=== PATIENT | female | born 1970 | race Caucasian/White ===

== ENCOUNTER → 2018-07-03 | Outpatient (CLI) | payer OTHER ==
[2016-02-24 14:35] VITALS: BP 125/69
[~2018-07-03] MED LIST: ALBU2.5V8 IH; ASPI-482 PO; ASPI1TAB31 PO; BREO ELLIPTA 11 EACH IH; BUDE10.2 IH; BUTA1CAP29 PO; CALC-244 PO; CHOL10003 PO; CYAN10005 PO; METO-239 PO; METO50TA6 PO; MULT1TAB52 PO; ONDA4TAB7 PO; OXYC1TAB15 PO; POLY17PO29 PO; SENN-80 PO; TIOT18CA IH; VENL150C PO
--- NOTE | 2018-07-03 16:45 | KCIC ---
EXAM: Lumbar spine MRI without contrast. HISTORY: Pain. TECHNIQUE: Multiplanar, multisequence magnetic resonance imaging of the lumbar spine was performed without contrast. COMPARISON: Radiographs dated 06/21/2018. FINDINGS: There is minimal retrolisthesis of L1 on L2. There is mild lumbar levocurvature or levoscoliosis. There is degenerative endplate remodeling and Schmorl's node formation at the lower thoracic and upper lumbar levels. No suspicious osseous lesion is seen. There is no acute or subacute fracture. 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 The conus terminates at L1-L2. At T11-T12, there is a minimal disc bulge which slightly effaces the ventral thecal sac. There is no stenosis. There is an incidental dilated nerve root sheath cyst within the right neural foramen. At T12-L1, there is no stenosis. At L1-L2, there is a minimal disc bulge and endplate remodeling. There is no stenosis. At L2-L3, there is endplate remodeling. There is no stenosis. At L3-L4, there is endplate remodeling. There is no stenosis. There is a tiny dilated right nerve root sheath cyst within the right neural foramen. At L4-L5, there is minimal left facet arthropathy. There is a tiny dilated nerve root sheath cyst within the right neural foramen. There is no stenosis. At L5-S1, there is no stenosis. IMPRESSION: Minimal degenerative change within the lower thoracic and lumbar spine, described in detail above. There is mild lumbar levocurvature or levoscoliosis. There is no significant foraminal or central canal stenosis. There is no acute osseous finding. Electronically signed by: Dionna Fermin MD (07/03/2018 4:42 PM) [facility]
== END | disposition home or self-care (01) ==
LOC: KCIC MRI 15:16
PROVIDERS: ATTEND Physician Assistant Medical
DX: M54.5 Low back pain (principal)
CPT/HCPCS: 72148

== ENCOUNTER → 2018-07-03 | Outpatient (CLI) | payer OTHER ==
[2016-02-24 14:35] VITALS: BP 125/69
[~2018-07-03] MED LIST changes: +ALBUTEROL SULFATE 2.5 MG/3 ML NEBU. NEB ONE
--- NOTE | 2018-07-03 15:13 | RESP ---
DATE OF SERVICE: 07/03/2018 Referred by Elham Hanna APRN. The patient's FVC was 3.25, which is 88% predicted, FEV1 1.84, which is 62% predicted. The FEV1/FVC ratio was reduced. There was no response to bronchodilators. Lung volume showed normal total lung capacity. Residual volume was increased to 124% predicted. Diffusion capacity 47% predicted. IMPRESSION: 1. Moderate obstructive airway disease. 2. No response to bronchodilators. 3. Lung volumes consistent with air trapping. 4. Moderate to severely reduced diffusion capacity. JEFF HAWTHORNE MD DR: BLAKE/milagro JOB#: [id number] / [id number] ELHAM Starkey
== END | disposition home or self-care (01) ==
LOC: PF 07:39
PROVIDERS: ATTEND Physician Assistant Medical
DX: J98.8 Other specified respiratory disorders (principal); Z72.0 Tobacco use
CPT/HCPCS: 94060; 94640; 94729; J7613

== ENCOUNTER → 2018-08-27 | Outpatient (CLI) | payer OTHER ==
[2016-02-24 14:35] VITALS: BP 125/69
[~2018-08-27] MED LIST changes: -ALBUTEROL SULFATE 2.5 MG/3 ML NEBU. NEB ONE
--- NOTE | 2018-08-28 09:56 | SLEEP ---
DATE OF STUDY: SLEEP STUDY: REFERRING PHYSICIAN: Tammi Bates M.D. The patient is 47 years old who weighs 130 pounds with a BMI of 22. The patient has severe subjective hypersomnia with an Moosic score of 18. Review of medications also indicates use of Lyrica, Flexeril, Cymbalta and Fioricet. Sleep study was performed to rule out obstructive sleep apnea. During the night study, the patient spent 424 minutes in bed and slept for 397 minutes with sleep efficiency of 94%. Sleep latency was 8 minutes with a REM latency of 361 minutes. Overall, sleep architecture showed normal stage 1 sleep, increased stage 2 sleep, normal slow wave sleep and reduced REM sleep. During the night study, the patient had no obstructive or mixed apneas. There was 1 central apnea and 9 hypopneas. The patient's apnea hypopnea index was 2 per hour, supine index 2 per hour. REM index of 14 per hour. Nocturnal oximetry study revealed a mean oxygen saturation of 88% with lowest of 80. 99% of time oxygen saturation remained between 80% and 89%. There was a sustained pattern suggesting hypoventilation. EKG monitoring revealed average heart rate of 81 beats per minute. No arrhythmias observed. PLMS were seen at index of 4 per hour and 2 per hour caused EEG arousals. Due to low AHI, the patient did not meet the split night criteria for CPAP initiation. IMPRESSION: 1. No clinically significant sleep disorder breathing. The patient's AHI for the entire night was 2 per hour. 2. Moderate sustained nocturnal hypoxia highly suggesting hypoventilation. 3. No clinically significant periodic limb movements. RECOMMENDATIONS: 1. The patient did not meet the criteria for CPAP initiation. 2. The patient has severe subjective hypersomnia with an Moosic score of 18. The patient's review of medications including Flexeril, Lyrica and Fioricet which can contribute to subjective hypersomnia. If clinically possible, weaning of these medications can be attempted to see clinical improvement. 3.. If clinical suspicion for narcolepsy is high, then consider doing multiple sleep latency tests. 5. Caution regarding driving until patient's hypersomnia is resolved. 6. The patient would benefit from 2 liters of oxygen at nighttime . JEFF HAWTHORNE MD DR: BLAKE/milagro JOB#: [id number] / [id number] TAMMI Beaver MD MTDD
== END | disposition home or self-care (01) ==
LOC: SLPLAB 18:49
PROVIDERS: ATTEND Internal Medicine Pulmonary Disease
DX: R06.83 Snoring (principal)
CPT/HCPCS: 95810